=== PATIENT | male | born 1990 | race African-American/Black ===

== ENCOUNTER 2024-04-28 06:27 | Inpatient (IN) | payer OTHER, SELFPAY ==
[2024-04-28] VITALS (14 sets, daily range): BP systolic 117–160; BP diastolic 71–119; BMI 24.9; BMI 23.7
[2024-04-28 01:50] LABS: % Basophils 0.5 % (0-2); % Eosinophils 2.5 % (0-6); % Immature Granulocytes 0.2 % (0-0.5); % Neutrophils 47.8 % (42.2-75.2); Absolute Eosinophils 0.1 10^3/uL (0-0.7); Absolute Lymphocytes 2.1 10^3/uL (1.2-3.4); Absolute Monocytes 0.6 10^3/uL (0.1-0.6); Absolute Neutrophils 2.7 10^3/uL (1.4-6.5); Hematocrit 32.4 % (39.0-52.0); Hemoglobin 10.8 g/dL (13.0-18.0); Mean Corp Hgb Conc. 33.3 g/dL (33.0-37.0); Mean Corpuscular Hgb 26.7 pg (27.0-31.0); Mean Corpuscular Volume 80.2 fL (80.0-94.0); Mean Platelet Volume 10.8 fL (7.4-10.4); Nucleated Red Blood Cells % 0 % (-); Platelet Count 276 10^3/uL (130-400); Red Blood Cell Count 4.04 10^6/uL (4.70-6.10); Red Cell Dist. Width 13.7 % (11.5-14.5); White Blood Cell Count 5.6 10^3/uL (4.8-10.8)
[2024-04-28 02:02] LABS: ALT (SGPT) 17 U/L (0-50); AST (SGOT) 26 U/L (17-59); Albumin 4.5 g/dl (3.5-5.0); Alkaline Phosphatase 71 U/L (38-126); Blood Urea Nitrogen 33 mg/dl (9-20); Calcium 9.7 mg/dl (8.4-10.2); Carbon Dioxide 31 mmol/L (22-30); Chloride 102 mmol/L (98-107); Estimated Creatinine Clearance 76 ml/min; Glucose 86 mg/dl (70-99); Potassium 4.3 mmol/L (3.5-5.1); Sodium 141 mmol/L (135-145); Total Bilirubin 0.4 mg/dl (0.2-1.3); Total Protein 7.5 g/dl (6.3-8.2); eGFR > 60.00
[2024-04-28 02:03] LABS: Amphetamines Positive (Negative); Barbiturates Negative (Negative)
[2024-04-28 02:04] LABS: Benzodiazepines Positive (Negative); Buprenorphine Negative (Negative); Cocaine Positive (Negative); Marijuana Negative (Negative); Methadone Negative (Negative); Methamphetamines Positive (Negative); Opiates Positive (Negative); Phencyclidine Negative (Negative); Tricyclic Antidepressants Negative (Negative)
[2024-04-28 02:12] LABS: Fentanyl, Urine Positive (Negative)
[2024-04-28 02:32] LABS: Acetaminophen < 10 ug/ml (10-30)
[2024-04-28 02:34] LABS: Alcohol < 10 mg/dl
[2024-04-28 02:51] LABS: Salicylate < 1.0 mg/dl (2.0-20.0)
[2024-04-28] MEDS: NSS 1000 IV ×5 (03:45→23:46)
[2024-04-28] MEDS: SUBUTEX 8 MG SL ×2 (03:45→10:32)
[2024-04-28] MEDS: ZOFRAN 4 MG IV ×4 (04:11→15:44)
[2024-04-28] MEDS: SUBUTEX 4 MG SL (04:42)
--- NOTE | 2024-04-28 05:35 | ED.GENMED ---
History of Present Illness
General
Chief Complaint: Withdrawal Symptoms
Source: patient and ambulance crew
Exam Limitations: none
Time Seen by Provider: 04/28/24 03:36
Nursing documentation reviewed up to this point in time: agreed with
History of Present Illness
History of Present Illness:
This is a 33-year-old gentleman who has history of substance use disorder, IV drug abuse, fentanyl, benzodiazepines. He resides in [place]. Was transported from [place] via constable to [facility] on bench
warrant. Upon arrival was noted to be significant opioid withdrawal and admits his last use was 8 to 10 hours prior to arrival. He was not incarcerated and is currently not under arrest; instead presents via EMS to the ED for evaluation. He has
had similar withdrawal symptoms previously and has been treated sporadically with Suboxone but not recently.
He takes no medicines on a daily basis.
He admits to generalized aches, nausea and vomiting but denies abdominal pain. No diarrhea. He has not had a fever.
Past History
Past History
ED Past Medical History: Other (Polysubstance abuse. IV drug abuse.)
ED Past Surgical History: Tonsilectomy
Social History
Tobacco: Smoker
Alcohol: None
Drug: Narcotics and IVDA
Personal: Single
Living: alone
Employment: Not employed
Family History
Family History: Other (Noncontributory)
Phy Exam
Physical Exam
Physical Exam:
GENERAL: 33-year-old gentleman appears his stated age, awake, very mildly drowsy, appears in mild to moderate distress intermittently loudly retching, intermittently vomiting clear liquid. He is cooperative.
EYE: pupils equal, mildly dilated, anicteric
NECK: Supple, nontender, no meningismus, no significant adenopathy.
ENT: posterior pharynx is clear, oral mucosa is mildly dry. Moderate clear rhinorrhea.
CARDIAC: Regular rate and rhythm. no murmur.
LUNGS: Clear breath sounds bilaterally, no acute respiratory distress, no wheezes/rales/rhonchi
ABDOMEN: Soft, nondistended, without focal tenderness, no r/g, no cvat. normoactive BS.
NEUROLOGICAL: Awake, mildly drowsy, no focal neuro deficits.
SKIN: Warm and dry, normal color, skin intact. No rash. Track valero bilateral anterior neck regions, antecubital fossa.
MUSCULOSKELETAL: No C/C/E. peripheral pulses are full and equal b/l. No palpable tenderness.
PSYCH: Mildly anxious, intermittently retching. Cooperative.
Scores
COW Clinical Opiate Withdrawal Scale
Resting Pulse Rate: 81-100
Sweating-over past 30min not from room temp or activity: Beads of sweat on brow or face
Restlessness-observation during assessment: Reports difficulty sittin
Pupil Size: Pupils moderately dilated
Bone or Joint Aches: Mild diffuse discomfort
Runny Nose or Tearing-not accounted for by cold/allergies: Nose running or tearing
GI Upset-over last 30min: Multiple episodes of diarrhea or vomiting
Tremor-observation of outstretched hands: Tremor can be felt, but not observed
Yawning-observation during assessment: Yawning once or twice during assessment
Anxiety or Irritability: Patient reports increasing irritability or anxiousness
Gooseflesh Skin: Piloerrection of skin can be felt or hairs standing up on arms
Score: 21
Withdrawal Severity: Moderate Withdrawal, consider starting Suboxone
Course
Orders/Labs/Results
Orders:
Orders
04/28/24 01:13
Electrocardiogram (*1) Urgent
Reason for Study: Other
Other Reason for Exam: withdrawal
04/28/24 01:14
EKG- Treatment ONCE
04/28/24 01:35
Acetaminophen Urgent
Comment: ADDED
Alcohol Urgent
Complete Blood Count/With Diff Urgent
Comprehensive Metabolic Panel Urgent
Fentanyl, Urine Urgent
Salicylate Urgent
Comment: ADDED
Urine Drug Abuse Screen Urgent
Date Specimen was Collected: 04/28/24
Time Specimen was Collected: 01:33
04/28/24 02:15
Add On- LAB Urgent
Tests Added?: alcohol, salicylate, acetaminophen
04/28/24 03:37
0.9% Sodium Chloride 1000 ml [Nss] 1,000 ml IV BOLUS
04/28/24 03:39
Buprenorphine [Subutex] 8 mg SL NOW ONE
04/28/24 04:09
Ondansetron Injectable [Zofran] 4 mg .ROUTE .STK-MED ONE
04/28/24 04:11
Ondansetron Injectable [Zofran] 4 mg IV NOW STA
04/28/24 04:36
Buprenorphine [Subutex] 4 mg SL NOW ONE
04/28/24 04:41
Ondansetron Injectable [Zofran] 4 mg IV NOW STA
04/28/24 05:32
0.9% Sodium Chloride 1000 ml [Nss] 1,000 ml IV BOLUS
Abnormal Lab Results
04/28/24
01:35
RBC 4.04 L 10^6/uL
(4.70-6.10)
Hgb 10.8 L g/dL
(13.0-18.0)
Hct 32.4 L %
(39.0-52.0)
MCH 26.7 L pg
(27.0-31.0)
MPV 10.8 H fL
(7.4-10.4)
Monocytes % 11.0 H %
(1.7-9.3)
Carbon Dioxide 31 H mmol/L
(22-30)
BUN 33 H mg/dl
(9-20)
Creatinine 1.4 H mg/dL
(0.7-1.3)
Salicylates < 1.0 L mg/dl
(2.0-20.0)
Urine Opiates Screen Positive H
(Negative)
Urine Fentanyl Screen Positive H
(Negative)
Acetaminophen < 10 L ug/ml
(10-30)
Ur Amphetamines Screen Positive H
(Negative)
U Methamphetamines Scrn Positive H
(Negative)
U Benzodiazepines Scrn Positive H
(Negative)
Urine Cocaine Screen Positive H
(Negative)
04/28/24 01:35
04/28/24 01:35
Vital Signs
Initial and Last Documented VS:
Initial Vital Signs
Temp Pulse Resp BP Pulse Ox
98.8 F 78 18 143/100 100
04/28/24 01:01 04/28/24 01:01 04/28/24 01:01 04/28/24 01:01 04/28/24 01:01
Last Documented Vital Signs
Temp Pulse Resp BP Pulse Ox
98.8 F 77 20 117/80 97
04/28/24 01:01 04/28/24 05:07 04/28/24 05:07 04/28/24 05:07 04/28/24 05:00
MDM/Problems Addressed
Differential Diagnosis Includes:
Patient presents via EMS with active opioid withdrawal syndrome. COWS score of 21
Concern for dehydration, electrolyte abnormality, acute kidney injury. Other consideration is occult infectious process.
Will check labs, initiate IV fluids and will plan to initiate Subutex for opioid withdrawal.
Will consider addition of benzodiazepine as well.
Chronic conditions affecting care: Psychiatric illness (Substance use disorder)
Acute Exacerbation and/or Progression of Chronic Illness: Psychiatric illness (Severe opioid withdrawal syndrome/substance use disorder)
*EKG
Interpreted by ED Provider?: Yes
Interpretation: normal
Comparison EKG: no comparison EKG present
Rate: normal
Rhythm: sinus
[place]: normal axis
Interval: normal interval
QRS Pattern: normal QRS
Ischemia: no ischemia
*Rd Project Manager Interpretation
Rate: normal
Interpretation: normal
Rhythm: sinus
*Critical Care Note
Total Time (30-74mins, 75-104mins- exclusive of procedures): Not Applicable
Update Note
Update Note:
04/28/2024 0551 AM
Patient appears somewhat more comfortable but continues with recurrent retching/vomiting despite IV fluids, despite 2 doses of IV Zofran as well as 12 mg of Subutex.
Labs show mild anemia with hemoglobin of 10.8, normal white blood cell count. Normal indices.
Chemistry show elevated creatinine of 1.4 concerning for acute kidney injury/dehydration. I have no old labs to compare.
EtOH, acetaminophen, salicylate are all negative, consistent with history.
UDS positive for fentanyl, benzodiazepines, methamphetamine, cocaine.
Due to intractable vomiting, acute kidney injury will plan to continue IV fluids, continue opioid withdrawal treatment and patient will require acute hospitalization for continued care/continued observation.
We have been in contact with [facility] mortgage loan specialist. Patient unfortunately too sick to discuss/arrange for inpatient rehab at this point.
ED Attending Note
-
Portions of this chart may have been created with voice recognition software.� Occasional wrong word or��sound alike� substitutions may have occurred due to the inherent limitations of voice recognition software.
Discharge Plan
Departure
Patient Disposition: Admit
Date of Disposition: 04/28/24
Time of Disposition: 05:40
Admit to: Telemetry
Admit to doctor: Herminio
Presentation/result/management discussed w/ accepting MD/DO: Hospitalist
Condition: Fair
Discharge Problem:
Acute opioid withdrawal, Intractable nausea and vomiting, Acute kidney injury, Polysubstance dependence including opioid type drug with complication, episodic abuse
Referrals:
NONE,* [Family Provider] -
Interventions
Interventions:
*Risk Screen - Suicide Last Done: 04/28/24 01:01
*General Assessment Last Done: 04/28/24 01:01
*Neglect/Abuse Screening Last Done: 04/28/24 01:01
*ED COVID-19 Vaccine History Last Done: 04/28/24 01:01
ED- Neurological Assessment Last Done: 04/28/24 01:11
ED-Psychological Assessment Last Done: 04/28/24 01:11
Discharge Date and Time
Print Language: ARMENIAN
--- NOTE | 2024-04-28 06:16 | HPS.HSE ---
Family Physician
-
Family Physician: * NONE
Chief Complaint
-
Opiate withdrawal.
History of Present Illness
Patient is a 34 years old male with polysubstance use disorder including IV drug use, fentanyl, benzodiazepines, cocaine, methamphetamine who presents to the emergency room with severe nausea vomiting and shakes. Patient was transported from
[place] via constable to [facility] for bench warrant. At that time he noted to have significant withdrawal symptoms. He admits last time using IV fentanyl close to 24 hours prior to presentation to the emergency room.
Patient was not incarcerated. After he was let go he presents to the emergency room.
Patient denies any chronic medical conditions. He does not take any prescriptive medications.
While in emergency room patient found to be with severe withdrawal symptoms including nausea vomiting shakes.
Medical History
Past Medical History
Past Medical History: Reports None, CAD and Other (Polysubstance abuse)
Past Surgical History: Reports None
Social History
Drug: IVDA
Personal: Single
Employment: Not Employed
Family History
Family History: Not pertinent
Allergies / Home Medications
Allergies reflects when Allergies were last updated in [employer].
Home Medications with original date entered in [employer]
Allergy/Medication List:
None
Allergies
Allergy/AdvReac Type Severity Reaction Status Date / Time
No Known Allergies Allergy Unverified 04/28/24 01:03
Review of Systems
-
A 12 point ROS was completed and negative except as noted: Yes
Physical Exam
Vital Signs
Vital Signs
Temp Pulse Resp BP Pulse Ox
98.8 F 77 20 117/80 97
04/28/24 01:01 04/28/24 05:07 04/28/24 05:07 04/28/24 05:07 04/28/24 05:00
Physical Exam
General: Well Developed, Well Nourished and No Apparent Distress
HEENT: NormoCephalic, Moist mucous membranes and Atraumatic
Respiratory: Clear
Cardiac: S1/S2 and Regular Rhythm; No Murmur or Rub
GI: Soft, Non Tender, Non Distended and Normal Bowel Sounds; No Organomegaly
Rectal: Deferred by Provider
Musculoskeletal: No Clubbing, No Cyanosis and No Edema
Skin: No Rash
Neuro: Awake, Alert, Oriented and Nonfocal/grossly intact
Laboratory Results
-
04/28/24 01:35
04/28/24 01:35
Laboratory Results
Total Bilirubin 0.4 mg/dl (0.2-1.3) 04/28/24 01:35
AST 26 U/L (17-59) 04/28/24 01:35
ALT 17 U/L (0-50) 04/28/24 01:35
Alkaline Phosphatase 71 U/L (38-126) 04/28/24 01:35
Impression/Plan
-
IMPRESSION:
Multisubstance abuse with severe opiate withdrawal.
HEIDE creatinine 1.4.
Normocytic anemia hemoglobin of 10? Chronic
PLAN:
Multisubstance abuse with severe opioid withdrawal.
Patient admits last IV fentanyl administered close to 24 hours prior to ED presentation.
In ED with persistent nausea and vomiting and shakes.
Urine drug screen positive for opiates, fentanyl, amphetamine/methamphetamine, benzodiazepine, cocaine.
Start opioid withdrawal protocol with Suboxone
May require addition of benzodiazepines
Cocaine positive. ECG with no ischemia. Monitor blood pressure. May need adjustment of withdrawal protocol with addition of clonidine.
Psychiatry consultation.
marketing services rep consultation
HEIDE
Creatinine 1.40
Visibly dehydrated.
Aggressive IV hydration with isotonic solution
Follow BMP
Normocytic anemia hemoglobin of 10
Follow CBC/hemoglobin with hydration. Expect further drop.
Check iron studies
Full code
DVT prophylaxis/Lovenox.
--- NOTE | 2024-04-28 06:56 | EDRN ---
this RN was sitting at the nurses station getting report from the previous assembler 1st shift RN and the pt was seen pulling concierge receptionist off, BP cuff off, Sp02 monitor off and climbed out of bed and walked to the bathroom, this RN and Teresa RN
entered the pts room, the pt was sitting on the toilet having a bowel movement and urinating, the pt started to doze off on the toilet however the pt was easily arousable, the pt was able to clean himself up, a new gown was given to the pt and the
pt was able to ambulate back to the stretcher, VS WNL, the pt was shivering so this RN provided the pt with two warm blankets, the pt is resting in stretcher in the lowest position, side rails up x2, call schmid within reach, HOB elevated, will
continue to monitor the pt closely
--- NOTE | 2024-04-28 07:00 | EDRN ---
it was reported to this RN that the pts belongings are with security
--- NOTE | 2024-04-28 07:15 | EDRN ---
this RN entered the pts room to recheck the pt and the pt is sleeping in stretcher in the lowest position, side rails up x2, call schmid within reach, HOB elevated, no s/s of distress, NSR in the 80's, RA Sp02 99%, no s/s of distress, this RN will
tube up report to the receiving unit, will continue to monitor the pt closely
[2024-04-28] MEDS: TYLENOL 1000 MG PO ×3 (08:28→23:45)
--- NOTE | 2024-04-28 10:38 | W.PN.HOSP.TC ---
Today's Communication/Plan
-
COWS/MSAS
PT/OT
await labs
Assessment / Plan
Assessment / Plan
pt is a 33 year old male
Multisubstance abuse with severe opioid withdrawal--cont COWS and MSAS protocol--Patient admitted to ED that last IV fentanyl administered close to 24 hours prior to ED presentation--Urine drug screen positive for opiates, fentanyl,
amphetamine/methamphetamine, benzodiazepine, cocaine--Start opioid withdrawal protocol with Suboxone--Cocaine positive. ECG with no ischemia. Monitor blood pressure. May need adjustment of withdrawal protocol with addition of clonidine--Await
Psychiatry consultation.
HEIDE--likely due to dehydration, poor oral intacke and drugs--Creatinine 1.40--Aggressive IV hydration with isotonic solution--await labs
Normocytic anemia hemoglobin of 10--Follow CBC/hemoglobin with hydration. Expect further drop--Check iron studies
Code status --Full code
DVT prophylaxis/Lovenox.
Anticipated Discharge: 24 - 48 hours
Subjective/Interval History
-
Date of Service: April 28, 2024
pt with n/v and goosebumps--not terribly interactive with me
Objective Data
-
Labs:
Laboratory Results
04/28/24 04/28/24
01:35 12:00
WBC 5.6 Pending
Hgb 10.8 L Pending
Hct 32.4 L Pending
Plt Count 276 Pending
Sodium 141 Pending
Potassium 4.3 Pending
Chloride 102 Pending
Carbon Dioxide 31 H Pending
BUN 33 H Pending
Creatinine 1.4 H Pending
Glucose 86 Pending
Calcium 9.7 Pending
Total Bilirubin 0.4 Pending
AST 26 Pending
ALT 17 Pending
Alkaline Phosphatase 71 Pending
Vital Signs:
max temp for 24 hours
04/28/24
01:01
Temp 98.8 F
Vital Signs
Temp Pulse Resp BP Pulse Ox
99.5 F 81 19 153/77 96
04/28/24 08:00 04/28/24 08:00 04/28/24 08:00 04/28/24 08:00 04/28/24 08:00
Review of Systems
-
Unable to obtain full review of systems at this time due to: Other (somnolent)
Physical Exam
-
General: Well Developed, Well Nourished and No Apparent Distress
HEENT: Normocephalic and Atraumatic
Respiratory: Clear to Auscultation; Negative Wheezes or Rhonchi
Cardiac: Regular Rhythm and S1/S2; Negative Murmur
GI: Soft and Nontender; Negative Normal Bowel Sounds
Musculoskeletal: No Clubbing, No Cyanosis, No Edema and Other (twitchy with goosebumps)
Neuro: Negative Awake or Alert
Psych: Calm
--- NOTE | 2024-04-28 11:41 | CON.MD ---
Consultation - Medical
-
patient seen chart reviewed. discussed with nursing and dr bonilla. the patient is a very poor historian unable to attend as he is in the throes of opiate withdrawal covered w rubia puentes, n/v. he did provide a little bit of information but more
will need to be gathered. he has already received 20 mg buprenorphine . he was brought here by police as there was a bench warrant for his arrest but he was let go. it was noted he was not doing well hence brought to er and admitted given wd.
tox screen + for opiates fentanyl amphets/meth, bzp and cocaine. he denies hx of depression and anxiety. he has never been hospitalized psychiatrically. he has been in rehab. i could not understand a lot of what he was saying as his speech was
rather garbled. he is originally from [place] and moved here to [facility] [place]. [place]. he admits to iv drug abuse. bp 157/77 cr 1.4 bun 33 anemia hgb 10 ecg nl
mse patient is oriented x3 i would not say he is alert but he did answer some of the questions but often i could not understand him. he denies that he is depressed . affect is blunted. he denies that he is suicidal. insight judgment lacking
dx opiate use disorder severe other drug use including stimulants, benzos likely r.o underlying psych when able to cooperate
plan discussed at length with pharmacist ms branch. the patient is in very significant distress. he may be in precipitated withdrawal given that he received buprenorphine very soon after arrival so far 20 mg today. consider whether to use
small amounts of dilaudid 1 mg for cows greater than 12 as well as clonidine patch and consider liberalizing ativan . ms branch also suggested considering tizanidine to help w possible xylazine wd. he does not have any sores which might indicate
xylazine. will discuss w dr bonilla. psych will follow
[2024-04-28 11:44] LABS: Hematocrit 27.6 % (39.0-52.0); Hemoglobin 9.3 g/dL (13.0-18.0); Mean Corp Hgb Conc. 33.7 g/dL (33.0-37.0); Mean Corpuscular Hgb 26.9 pg (27.0-31.0); Mean Corpuscular Volume 79.8 fL (80.0-94.0); Mean Platelet Volume 10.6 fL (7.4-10.4); Platelet Count 252 10^3/uL (130-400); Red Blood Cell Count 3.46 10^6/uL (4.70-6.10); Red Cell Dist. Width 13.7 % (11.5-14.5); White Blood Cell Count 5.6 10^3/uL (4.8-10.8)
[2024-04-28] MEDS: THIAMINE INJECTION 200 MG IV ×2 (11:44→20:41)
[2024-04-28 12:07] LABS: ALT (SGPT) 13 U/L (0-50); AST (SGOT) 21 U/L (17-59); Albumin 3.4 g/dl (3.5-5.0); Alcohol None Detected; Alkaline Phosphatase 65 U/L (38-126); Blood Urea Nitrogen 22 mg/dl (9-20); Calcium 7.6 mg/dl (8.4-10.2); Carbon Dioxide 26 mmol/L (22-30); Chloride 112 mmol/L (98-107); Estimated Creatinine Clearance 106 ml/min; GGTP 43 U/L (15-73); Glucose 84 mg/dl (70-99); Magnesium 1.6 mg/dl (1.6-2.3); Phosphorus 1.4 mg/dl (2.5-4.5); Potassium 2.9 mmol/L (3.5-5.1); Sodium 144 mmol/L (135-145); Total Bilirubin 0.5 mg/dl (0.2-1.3); eGFR > 60.00
[2024-04-28] MEDS: CATAPRES-TTS-2 0.2 MG TRANSDERM (12:14)
[2024-04-28 12:23] LABS: INR 1.39; PT 16.8 Sec (11.4-14.6)
[2024-04-28 12:24] LABS: APTT 31.6 Sec (23.4-35.0)
[2024-04-28] MEDS: DILAUDID 1 MG IV ×2 (12:27→15:44)
[2024-04-28 12:39] LABS: B-Hydroxybutyrate 1.15 mmol/L (0.02-0.27)
--- NOTE | 2024-04-28 12:44 | CM ---
Unable to complete initial assessment
Chart reviewed: multi substance abuse w/ severe opioid withdrawal; admitted via ED; last IV fentanyl administered close to 24 hours prior to ED presentation
Positive urine drug screen
From [place]; lives in [place]
Pharmacy: [facility] [place]
Following CBC with hydration
Anticipate Discharge 24-48 hours
CM Consult completed: notified [facility]; spoke with counselor industrial economist; Sukhi will see him today or tomorrow
[2024-04-28] MEDS: LOVENOX 40 MG SC (17:13)
[2024-04-28] MEDS: ZANAFLEX 2 MG PO ×2 (17:20→23:46)
--- NOTE | 2024-04-28 19:22 | PTCARENOTE ---
patient pulled out PIV and removed telemetry leads, in the bathroom with nausea/vomit. Waiting on patient to get back to be for new IV.
[2024-04-28] MEDS: ATIVAN 1 MG PO (19:27)
[2024-04-28] MEDS: MAGNESIUM SULFATE 50 IV (20:42)
[2024-04-28] MEDS: KCL 270 MEQ IV (20:42)
[2024-04-29 03:41] VITALS: BP 133/76
[2024-04-29 06:57] LABS: % Basophils 0.2 % (0-2); % Immature Granulocytes 0.3 % (0-0.5); % Lymphocytes 19.5 % (20.5-51.1); % Monocytes 9.6 % (1.7-9.3); % Neutrophils 70.4 % (42.2-75.2); Absolute Lymphocytes 1.3 10^3/uL (1.2-3.4); Absolute Monocytes 0.6 10^3/uL (0.1-0.6); Absolute Neutrophils 4.6 10^3/uL (1.4-6.5); Hematocrit 30.2 % (39.0-52.0); Hemoglobin 9.9 g/dL (13.0-18.0); Mean Corp Hgb Conc. 32.8 g/dL (33.0-37.0); Mean Corpuscular Hgb 26.4 pg (27.0-31.0); Mean Corpuscular Volume 80.5 fL (80.0-94.0); Mean Platelet Volume 10.8 fL (7.4-10.4); Nucleated Red Blood Cells % 0 % (-); Platelet Count 280 10^3/uL (130-400); Red Blood Cell Count 3.75 10^6/uL (4.70-6.10); Red Cell Dist. Width 13.9 % (11.5-14.5); White Blood Cell Count 6.6 10^3/uL (4.8-10.8)
[2024-04-29 07:00] VITALS: BP 129/78
[2024-04-29 08:11] LABS: ALT (SGPT) 18 U/L (0-50); AST (SGOT) 28 U/L (17-59); Albumin 4.2 g/dl (3.5-5.0); Alkaline Phosphatase 73 U/L (38-126); Blood Urea Nitrogen 31 mg/dl (9-20); Calcium 9.5 mg/dl (8.4-10.2); Carbon Dioxide 25 mmol/L (22-30); Chloride 108 mmol/L (98-107); Direct Bilirubin 0.2 mg/dl (0.0-0.4); Estimated Creatinine Clearance 82 ml/min; Glucose 101 mg/dl (70-99); Magnesium 2.3 mg/dl (1.6-2.3); Potassium 3.8 mmol/L (3.5-5.1); Sodium 144 mmol/L (135-145); Total Bilirubin 0.6 mg/dl (0.2-1.3); Total Protein 7.1 g/dl (6.3-8.2); eGFR > 60.00
[2024-04-29] MEDS: FOLVITE 1 MG PO (08:12)
[2024-04-29] MEDS: THIAMINE INJECTION 200 MG IV ×2 (08:12→19:17)
[2024-04-29] MEDS: TYLENOL 1000 MG PO ×3 (08:13→23:01)
[2024-04-29 10:57] VITALS: BP 127/89
[2024-04-29] MEDS: SUBUTEX 0.5 MG SL (13:21)
--- NOTE | 2024-04-29 13:34 | CM ---
Patient seen at bedside. patient also seen by Sukhi from [facility]. Patient states he is ready to go to seek treatment as inpatient however, per Sukhi patient nurse told him that police were to pick him up after discharge. VM left for patient nurse to
review options. CM will continue to follow for discharge planning needs.
Plan; home with information re; substance abuse follow up
--- NOTE | 2024-04-29 14:10 | W.PN.UPDATE ---
Update Note
Progress Note Update
Pt seen, reviewed with nursing staff. Pt lying in bed, sleepy, groaning and giving very limited responses. Pt affirms he was prescribed Suboxone 16 mg per day prior to admission, although he was using Fentanyl, benzo's, cocaine, methamphetamine.
PDPM shows Rx for Suboxone 16 mg per day, resumed 03/05/24 and filled consistently since then. Pt noted to c/o worse withdrawal initially on Subutex protocol, may have had precipitated w/d. Pt also on MSAS protocol, only received one dose of Ativan
1 mg yesterday. Pt c/o feeling withdrawal, says yes to aches, nausea, does not display overt objective signs, is socially withdrawn, not making eye contact.
Imp: Opioid Use d/o, severe
Polysubstance use- benzo, cocaine, methamphetamine
Rec: Stop Dilaudid; slowly increase Subutex. Pt answered yes to planning to return to Suboxone maintenance treatment when discharged
Will follow, and assess mental status further as able
[2024-04-29 15:00] VITALS: BP 100/72
[2024-04-29 15:26] VITALS: BMI 23.7
--- NOTE | 2024-04-29 15:32 | PN.CDI ---
CDI
- -
CDI:
Physician Documentation Request
Admit Date: 04/28/24 06:27
Dear Doctor Zev,
Please review the following and provide your response in the progress notes.
Clinical Indicators:
Laboratory Tests
04/28/24 04/28/24 04/29/24
01:35 11:16 06:07
Potassium 4.3 2.9 L D 3.8 D
Medications
Potassium Chloride 40 meq/ (Dextrose) 270 mls @ 67.5 mls/hr IV NOW STA
Stop: 04/28/24 22:24
Last Admin: 04/28/24 20:42 Dose: 270 mls
Based on the above, please clarify in the progress notes, the appropriate diagnosis, if significant, that supports the above abnormalities and additional evaluation, monitoring and/or treatment rendered:
Hypokalemia
Abnormal lab value, clinically insignificant
Other(please specify)
Use of terms such as suspected, likely, concern for, or probable (associated with a specific diagnosis that is being evaluated, monitored, or treated as if it exists) are acceptable and can be coded in the inpatient setting, when documented at the
time of discharge.
Thank you,
Michell Raza RN BSN CCDS
CDI Specialist
please contact via tiger text
Please use your independent medical judgment in providing your response.
[2024-04-29] MEDS: SUBUTEX 2 MG SL ×2 (16:10→23:02)
--- NOTE | 2024-04-29 16:55 | W.PN.HOSP.TC ---
Addendum entered and electronically signed by Michell Brothers MD 04/29/24 19:25:
I saw and evaluated the patient independently. I reviewed the resident�s note and agree with findings and plan as documented by Dr. Srivastava.
GENERAL: well developed, well nourished, male in no apparent distress
HEENT: NC/AT
HEART: regular rate and rhythm, +S1, +S2--less tachycardic
LUNGS : clear to auscultation bilaterally
ABDOM: soft, nontender, nondistended, + bowel sounds
EXT: no cyanosis, clubbing, or edema--less goosebumps
NEUROLOGIC: awake--responds
Multisubstance abuse with severe opioid withdrawal--cont COWS and MSAS protocol--Patient admitted to ED that last IV fentanyl administered close to 24 hours prior to ED presentation--Urine drug screen positive for opiates, fentanyl,
amphetamine/methamphetamine, benzodiazepine, cocaine--cont opioid withdrawal protocol with Suboxone--May need adjustment of withdrawal protocol with addition of clonidine--Apprec Psychiatry--stopping IV dilaudid started by psych and stopping
microdosing of subutex as well
HEIDE--likely due to dehydration, poor oral intake and drugs--Creatinine 1.3--
Normocytic anemia hemoglobin of 10, likely of chronic disease--Follow CBC/hemoglobin with hydration
hypophosphatemia--noted--will repeat
Code status --Full code
DVT prophylaxis/Lovenox.
Original Note:
Today's Communication/Plan
-
IV fluids, MSAS, COWS
Assessment / Plan
Assessment / Plan
pt is a 33 year old male:
Multisubstance abuse with severe opioid withdrawal---Patient admitted to ED that last IV fentanyl administered close to 24 hours prior to ED presentation--Urine drug screen positive for opiates, fentanyl, amphetamine/methamphetamine, benzodiazepine,
cocaine---. ECG with no ischemia. Monitor blood pressure. May need adjustment of withdrawal protocol with addition of clonidine---
- Continue Opioid withdrawal protocol with microdosing of Suboxone + supportive Dilaudid. COWS this AM = 10
- Positive beta-hydroxybutyrate 1.15, alcohol <10 on presentation. Continue MSAS protocol
- Appreciate Psych Input
- [facility] consult via CM
HEIDE--likely due to dehydration, poor oral intake and drugs--Creatinine 1.40 on arrival
-Aggressive IV hydration with isotonic solution--Cr 1.3 today
-Follow BMP
Normocytic anemia hemoglobin of 10.8 at admission
-Reduced with hydration --9.9
-Follow CBC/hemoglobin
-Will check iron studies. transfuse as needed
Code status --Full code
DVT prophylaxis/Lovenox.
Anticipated Discharge: Within 24 hours
Subjective/Interval History
-
Date of Service: April 29, 2024
Objective Data
-
Labs:
Laboratory Results
04/29/24
06:07
WBC 6.6
Hgb 9.9 L
Hct 30.2 L
Plt Count 280
Sodium 144
Potassium 3.8 D
Chloride 108 H
Carbon Dioxide 25
BUN 31 H
Creatinine 1.3
Glucose 101 H
Calcium 9.5 D
Total Bilirubin 0.6
AST 28
ALT 18
Alkaline Phosphatase 73
Vital Signs:
Vital Signs
Temp Pulse Resp BP Pulse Ox
99.7 F 65 17 100/72 97
04/29/24 15:00 04/29/24 15:00 04/29/24 15:00 04/29/24 15:00 04/29/24 15:00
I&O
04/28/24 04/29/24 04/30/24
06:59 06:59 06:59
Intake Total 2119
Balance 2119
Review of Systems
-
History Source: Patient
Constitutional: Reports Chills; Denies Fever
Respiratory: Denies Trouble Breathing
Cardiac: Denies Chest Pain
Abdomen/GI: Reports No Symptoms; Denies Abdominal Pain, Nausea, Vomiting, Diarrhea or Constipated
Genitourinary: Reports No Symptoms; Denies Dysuria
Musculoskeletal: Reports Arthralgias and Myalgias
Physical Exam
-
General: Well Developed and Other (appears uncomfortable)
HEENT: Normocephalic and Moist Mucous Membranes
Respiratory: Clear to Auscultation and Non Labored Respirations; Negative Wheezes, Rales, Rhonchi or Crackles
Cardiac: Regular Rhythm and S1/S2; Negative Irregular Rhythm, Murmur or Rub
Musculoskeletal: No Edema
Skin: Warm, Dry and Other (piloerection); Negative Ulcers or Lesions
Neuro: Tremors and Other (Somnolent, rousable, answers questions)
Psych: Calm
[2024-04-29] MEDS: LOVENOX 40 MG SC (17:36)
[2024-04-29 19:00] VITALS: BP 136/88
[2024-04-29] MEDS: ZANAFLEX 2 MG PO (19:29)
[2024-04-29 23:30] VITALS: BP 106/68
[2024-04-30 02:39] VITALS: BP 130/80
[2024-04-30 07:35] VITALS: BP 110/63
--- NOTE | 2024-04-30 07:59 | W.PN.HOSP.TC ---
Addendum entered and electronically signed by Michell Brothers MD 04/30/24 13:59:
I saw and evaluated the patient independently. I reviewed the resident�s note and agree with findings and plan as documented by Dr. Srivastava.
GENERAL: well developed, well nourished, male in no apparent distress
HEENT: NC/AT
HEART: regular rate and rhythm, +S1, +S2
LUNGS : clear to auscultation bilaterally
ABDOM: soft, nontender, nondistended, + bowel sounds
EXT: no cyanosis, clubbing, or edema
NEUROLOGIC: awake--responds
Multisubstance abuse with severe opioid withdrawal--cont COWS and MSAS protocol--Patient admitted to ED that last IV fentanyl administered close to 24 hours prior to ED presentation--Urine drug screen positive for opiates, fentanyl,
amphetamine/methamphetamine, benzodiazepine, cocaine--cont opioid withdrawal protocol with Suboxone--May need adjustment of withdrawal protocol with addition of clonidine--Apprec Psychiatry--stopping IV dilaudid started by psych and stopping
microdosing of subutex as well
HEIDE--likely due to dehydration, poor oral intake and drugs--Creatinine 1.3--no labs this AM
Normocytic anemia hemoglobin of 10, likely of chronic disease--Follow CBC/hemoglobin with hydration
hypophosphatemia--noted--will repeat
Code status --Full code
DVT prophylaxis/Lovenox.
anticipate d/c in AM
Original Note:
Today's Communication/Plan
-
Likely discharge tomorrow
Assessment / Plan
Assessment / Plan
pt is a 33 year old male:
Multisubstance abuse with severe opioid withdrawal---Patient admitted to ED that last IV fentanyl administered close to 24 hours prior to ED presentation--Urine drug screen positive for opiates, fentanyl, amphetamine/methamphetamine, benzodiazepine,
cocaine---. ECG with no ischemia. Monitor blood pressure. May need adjustment of withdrawal protocol with addition of clonidine---
- Continue Opioid withdrawal protocol with microdosing of Suboxone + supportive Dilaudid. COWS this AM = 8
- Positive beta-hydroxybutyrate 1.15, alcohol <10 on presentation. Continue MSAS protocol
- Appreciate Psych Input. Trazodone 50 mg started for insomnia
- [facility] consult via CM
Acute kidney injury
Likely due to dehydration, poor oral intake and drugs--Creatinine 1.40 on arrival
-Tolerating p.o. Improved appetite encourage oral hydration
-Follow BMP
Hypokalemia:
2.9.
-Repleted
Normocytic anemia hemoglobin of 10.8 at admission
-Reduced with hydration --9.9
- Source is unclear. Follow CBC/hemoglobin
-Will check iron studies. transfuse as needed
Hypophosphatemia:
- Repeat
Code status --Full code
DVT prophylaxis/Lovenox.
Anticipated Discharge: Within 24 hours
Subjective/Interval History
-
Date of Service: April 30, 2024
Patient feels markedly better today. Improved appetite
Objective Data
-
Labs:
Laboratory Results
04/30/24
06:00
WBC Pending
Hgb Pending
Hct Pending
Plt Count Pending
Sodium Pending
Potassium Pending
Chloride Pending
Carbon Dioxide Pending
BUN Pending
Creatinine Pending
Glucose Pending
Calcium Pending
Total Bilirubin Pending
AST Pending
ALT Pending
Alkaline Phosphatase Pending
Vital Signs:
Vital Signs
Temp Pulse Resp BP Pulse Ox
98 F 59 16 110/63 100
04/30/24 07:35 04/30/24 07:35 04/30/24 07:35 04/30/24 07:35 04/30/24 07:35
I&O
04/29/24 04/30/24 05/01/24
06:59 06:59 06:59
Intake Total 2119 1060 / 1060
Output Total 2349
Balance 2119 -1290 / -1290
Review of Systems
-
History Source: Patient
Constitutional: Denies Fever or Chills
Respiratory: Reports No Symptoms; Denies Cough or Trouble Breathing
Cardiac: Reports Diaphoresis; Denies Chest Pain or Palpitations
Abdomen/GI: Reports No Symptoms; Denies Abdominal Pain, Nausea, Vomiting, Diarrhea or Constipated
Musculoskeletal: Reports Myalgias
Neuro: Denies Dizzy or Headache
Psych: Reports Anxious
Physical Exam
-
General: Well Developed, Well Nourished, No Apparent Distress and Comfortable
HEENT: Normocephalic, Atraumatic, Moist Mucous Membranes and Anicteric
Respiratory: Clear to Auscultation and Non Labored Respirations; Negative Wheezes, Rales, Rhonchi or Crackles
Cardiac: Regular Rhythm and S1/S2; Negative Murmur, Rub or Calf Tenderness
GI: Soft
Musculoskeletal: No Clubbing, No Cyanosis and No Edema
Skin: Warm, Dry and Other (Piloerection); Negative Rash, Ulcers or Lesions
Neuro: Awake, Alert, Oriented and Other (No tremor)
Psych: Calm
[2024-04-30] MEDS: TYLENOL 1000 MG PO ×3 (09:20→23:03)
[2024-04-30] MEDS: SUBUTEX 2 MG SL ×3 (09:20→22:54)
[2024-04-30] MEDS: FOLVITE 1 MG PO (09:21)
[2024-04-30] MEDS: NSS IV ×3 (09:21)
[2024-04-30] MEDS: THIAMINE INJECTION 200 MG IV ×2 (09:21→19:35)
--- NOTE | 2024-04-30 11:02 | W.PN.UPDATE ---
Update Note
Progress Note Update
Patient seen, chart reviewed, discussed with RN and staff. Mr. Cortez appears to be doing a but better today. Current denies nay withdrawal symptoms. He tells me his appetite is returning and he is trying to take in more fluids. He does admit he is
not sleeping well and has not slept well in quite some time. He has had trazodone by his report in the past which was helpful Will initiate this HS. He is interested in continue substance abuse treatment once medically stable but is unsure if he
will be incarcerated once medically stable as there was a bench warrant for a probation violation here is [facility]. [facility] and CM to follow.
Impression/Recommendation: Opioid use disorder, severe; Polysubstance use - benzo, cocaine, methamphetamine - Continue Subutex currently at 2mg TID, MSAS and COWS protocol in place. Add trazodone at 50mg for sleep.
[2024-04-30 13:29] LABS: Iron 50 ug/dl (49-181); Percent Saturation 16 % (20-50); Total Iron Binding Capacity 299 ug/dl (261-462)
[2024-04-30 14:29] LABS: Ferritin 83.3 ng/ml (17.9-464.0)
--- NOTE | 2024-04-30 15:15 | CM ---
Addendum entered by Bryanna Krishna 04/30/24 15:29:
per police [place] patient is to be picked up by probation for a [place] probation violation. CM will call in am when patient is discharged.
Original Note:
Patient seen at bedside. Patient stated that he was told to call police when he was discharged. CM spoke with police dispatch at [phone], anticipate return call with futher instructions. Patient for possible discharge tomorrow and patient
anticipates that he will need ride to train station. CM will continue to follow for discharge planning needs.'
Plan; home when medically stable
[2024-04-30 15:23] VITALS: BP 129/80
[2024-04-30] MEDS: ZANAFLEX 2 MG PO (17:19)
[2024-04-30] MEDS: LOVENOX 40 MG SC (17:27)
[2024-04-30 19:35] VITALS: BP 130/75
[2024-04-30 20:43] LABS: Phosphorus 2.6 mg/dl (2.5-4.5)
[2024-04-30] MEDS: DESYREL 50 MG PO (21:03)
[2024-04-30 22:53] VITALS: BP 129/83
--- NOTE | 2024-05-01 03:48 | DOWNTIME ---
There was a [employer] Downtime on 05/01/2024 from 0100 to 05/01/2024 at 0255. Downtime documentation of patient's care, including medication administrations, has been reconciled in the electronic record per guidelines. Refer to the
patient's paper chart under the miscellaneous tab to see printed paper medication records and downtime forms.
[2024-05-01 03:54] VITALS: BP 138/75
--- NOTE | 2024-05-01 05:09 | PTCARENOTE ---
Patient's HR in 40s when sleeping. No distress. stable vitals.
[2024-05-01 08:03] VITALS: BP 128/74
--- NOTE | 2024-05-01 08:08 | W.PN.HOSP.TC ---
Addendum entered and electronically signed by Michell Brothers MD 05/01/24 17:41:
I saw and evaluated the patient independently. I reviewed the resident�s note and agree with findings and plan as documented by Dr. Srivastava.
GENERAL: well developed, well nourished, male in no apparent distress
HEENT: NC/AT
HEART: regular rate and rhythm, +S1, +S2
LUNGS : clear to auscultation bilaterally
ABDOM: soft, nontender, nondistended, + bowel sounds
EXT: no cyanosis, clubbing, or edema
NEUROLOGIC: awake/grossly intact
Multisubstance abuse with severe opioid withdrawal--s/p COWS and MSAS protocol--Patient admitted to ED that last IV fentanyl administered close to 24 hours prior to ED presentation--Urine drug screen positive for opiates, fentanyl,
amphetamine/methamphetamine, benzodiazepine, cocaine--cont Suboxone--Apprec Psychiatry
HEIDE--likely due to dehydration, poor oral intake and drugs--Creatinine 1.2 down from 1.4 (did get to 1.0 during this admission)
Normocytic anemia-- hemoglobin 11.1 at discharge, likely of chronic disease
hypophosphatemia--noted--improved
Code status --Full code
DVT prophylaxis/Lovenox.
D/C
Original Note:
Today's Communication/Plan
-
Discharge planning
Assessment / Plan
Assessment / Plan
pt is a 33 year old male:
Multisubstance abuse with severe opioid withdrawal---Patient admitted to ED that last IV fentanyl administered close to 24 hours prior to ED presentation--Urine drug screen positive for opiates, fentanyl, amphetamine/methamphetamine, benzodiazepine,
cocaine---. ECG with no ischemia.
- Continue Opioid withdrawal protocol with microdosing of Suboxone + supportive Dilaudid. COWS this AM = 1
- Positive beta-hydroxybutyrate 1.15, alcohol <10 on presentation. Continue MSAS protocol
- Appreciate Psych Input. Trazodone 50 mg for insomnia
- [facility] consult via CM
- Okay to discharge today
Acute kidney injury
Likely due to dehydration, poor oral intake and drugs--Creatinine 1.40 on arrival. No known baseline. Resolved. 1.2 today
-Tolerating p.o. Improved appetite and oral hydration
-Follow BMP
Hypokalemia:
2.9.
-Repleted, resolved
Normocytic anemia hemoglobin of 10.8 at admission
- 11.1 today
- Follow CBC/hemoglobin
Hypophosphatemia:
- Resolved. 2.6
Code status --Full code
DVT prophylaxis/Lovenox.
Anticipated Discharge: Today
Subjective/Interval History
-
Date of Service: May 01, 2024
Pt feels subjectively better. Reports good sleep with trazodone
Objective Data
-
Labs:
Laboratory Results
05/01/24 05/01/24
07:46 08:04
WBC Pending
Hgb Pending
Hct Pending
Plt Count Pending
Sodium Cancelled Pending
Potassium Cancelled Pending
Chloride Cancelled Pending
Carbon Dioxide Cancelled Pending
BUN Cancelled Pending
Creatinine Cancelled Pending
Glucose Cancelled Pending
Calcium Cancelled Pending
Total Bilirubin Cancelled Pending
AST Cancelled Pending
ALT Cancelled Pending
Alkaline Phosphatase Cancelled Pending
Vital Signs:
Vital Signs
Temp Pulse Resp BP Pulse Ox
98 F 52 16 128/74 100
05/01/24 08:03 05/01/24 08:03 05/01/24 08:03 05/01/24 08:03 05/01/24 08:03
I&O
04/30/24 05/01/24 05/02/24
06:59 06:59 06:59
Intake Total 1060 / 1060 3350 / 3350
Output Total 2350 / 2350 2650 / 2650
Balance -1290 / -1290 700 / 700
Review of Systems
-
History Source: Patient
Constitutional: Denies Fever, Night Sweats or Chills
EENT: Denies Tearing or Runny Nose
Respiratory: Denies Cough or Trouble Breathing
Cardiac: Denies Chest Pain, Palpitations or Syncope
Abdomen/GI: Denies Abdominal Pain, Nausea, Vomiting, Diarrhea or Constipated
Genitourinary: Denies Dysuria or Difficulty Voiding
Neuro: Denies Dizzy or Headache
Psych: Reports Other (calm)
Physical Exam
-
General: Well Developed, Well Nourished, No Apparent Distress and Comfortable
HEENT: Normocephalic, Atraumatic, Moist Mucous Membranes and Anicteric
Respiratory: Clear to Auscultation and Non Labored Respirations; Negative Wheezes, Rales or Rhonchi
Cardiac: Regular Rhythm and S1/S2; Negative Murmur or Rub
GI: Soft, Nontender, Nondistended and Normal Bowel Sounds
Musculoskeletal: No Clubbing, No Cyanosis and No Edema
Skin: Warm, Dry and Other (no piloerection); Negative Rash, Ulcers or Lesions
Neuro: Awake, Alert and Oriented; Negative Tremors
Psych: Calm
[2024-05-01 08:34] LABS: Hematocrit 33.4 % (39.0-52.0); Hemoglobin 11.1 g/dL (13.0-18.0); Mean Corp Hgb Conc. 33.2 g/dL (33.0-37.0); Mean Corpuscular Hgb 26.7 pg (27.0-31.0); Mean Corpuscular Volume 80.3 fL (80.0-94.0); Red Blood Cell Count 4.16 10^6/uL (4.70-6.10); Red Cell Dist. Width 13.5 % (11.5-14.5)
[2024-05-01] MEDS: TYLENOL 1000 MG PO (08:57)
[2024-05-01] MEDS: FOLVITE 1 MG PO (08:58)
[2024-05-01] MEDS: VITAMIN B1 100 MG PO (08:58)
[2024-05-01] MEDS: SUBUTEX 2 MG SL (08:58)
[2024-05-01 10:20] LABS: ALT (SGPT) 17 U/L (0-50); AST (SGOT) 24 U/L (17-59); Alkaline Phosphatase 53 U/L (38-126); Blood Urea Nitrogen 18 mg/dl (9-20); Calcium 9.5 mg/dl (8.4-10.2); Carbon Dioxide 25 mmol/L (22-30); Chloride 106 mmol/L (98-107); Estimated Creatinine Clearance 88 ml/min; Glucose 124 mg/dl (70-99); Magnesium 1.9 mg/dl (1.6-2.3); Potassium 4.4 mmol/L (3.5-5.1); Sodium 140 mmol/L (135-145); Total Bilirubin 0.4 mg/dl (0.2-1.3); Total Protein 6.8 g/dl (6.3-8.2); eGFR > 60.00
[2024-05-01 11:26] VITALS: BP 134/75
--- NOTE | 2024-05-01 12:27 | CM ---
Patient for discharge today. Patient aware that police to be contacted at discharge. Patient given information about [facility] services. Patient will need scrubs for discharge due to lack of clothing. Nursing updated. CM called to [phone] and
[place] to call back regarding disposition. CM will continue to follow for discharge planning needs.
Plan; pending police disposition
--- NOTE | 2024-05-01 18:12 | W.DCSUMMARY ---
Addendum entered and electronically signed by Michell Brothers MD 05/01/24 18:46:
Read, reviewed, and agree. See same day progress note for additional details. Time spent coordinating care, DC planning, review of DC plan of care with resident, transition of care, review of records in EMR, med rec, consults, notes, d/w
consultants, nursing, family, and CM = 18 mins
Original Note:
Discharge Summary
Discharge Data
Date of Admission: 04/28/24
Date of Discharge: 05/01/24
-
Pending Results: No
Hospital Course
Discharge Physician: Micaela Srivastava MD; Michell Brothers MD
Primary discharge diagnosis: Multisubstance use disorder with severe opioid withdrawal, acute kidney injury, hypokalemia, normocytic anemia
Chronic conditions prior to admission: Substance use disorder
Hospital Course: 34-year-old male with history of substance use disorder including IV drug use, presented to the ED on 04/28 with severe nausea and vomiting and shakes. He was sent to the ED via EMS from [facility] where he
presented for a bench warrant and was then noted to have significant withdrawal symptoms. At the time he presented to the emergency room, his last use was 8 to 10 hours prior. Urine toxicology screen was positive for opiates, fentanyl,
amphetamines, methamphetamines, benzodiazepines and cocaine. Vitals where stable on presentation, but patient was noted to have severe nausea, vomiting and shakes.
He was noted to have an acute kidney injury with creatinine 1.4.
Hemoglobin with reduced at 10.8. Beta hydroxybutyrate elevated 1.15.
COWS score on presentation was 21. Suboxone was administered in the ED. Opioid withdrawal protocol was initiated with microdosing Suboxone as well as Dilaudid to temper withdrawal symptoms. MSAS protocol was also initiated given beta
hydroxybutyrate elevation, history of multisubstance use disorder, and nonzero blood alcohol level. IV fluids were administered.
He was also seen by the psychiatrist and trazodone was added for sleep disturbance. Patient subsequently noted improved sleep. There was 1 episode of fever to 100.6 with no recurrence. Steady significant improvement was noted and withdrawal
symptoms were adequately controlled. IV fluid hydration was discontinued when patient was able to achieve adequate food and water intake with markedly improved appetite. COWS score at discharge was 1 (minimal residual aches). Patient verbalized
he was ready to be discharged and was scheduled to be picked up by law enforcement. Case management was involved in arranging outpatient community resources via [facility] and patient was receptive to this information.
He was discharged with trazodone 50 mg at night for sleep, and a 7-day supply of buprenorphine 2 mg sublingual 3 times daily. He was strongly encouraged to follow-up with
Unfortunately, after discharge preparations were concluded, patient left before allowing for law enforcement arrival.
Consults:
Psychiatry
Discharge Plan
-
Patient Disposition: [facility]
Discharge Diagnosis/Procedures: Multisubstance use disorder with severe opioid withdrawal, Acute kidney injury, normocytic anemia, hypophosphatemia
Condition: Good
Diet: No restrictions
Activity: No restrictions
Driving Restrictions: As prior to admission
Bathing Restrictions: None
Referrals:
NONE,* [Family Provider] - in less than 1 week
Additional Discharge Medication Instructions: Highly recommend that you follow up with [facility] for helpful community resources
Prescriptions:
New
trazodone 50 mg Tablet
50 mg PO HS 30 Days Qty: 30 0RF
buprenorphine HCl 2 mg Tablet, Sublingual
2 mg sublingual TID 7 Days Qty: 21 0RF
Discharge Orders:
Discharge Patient (As Directed); Ordered 05/01/24
Ordered By: Micaela Srivastava
Discharge Date and Time
Discharge Date/Time: 05/01/24 13:39
Print Language: DANISH
== END 2024-05-01 13:39 | DRG 897 ==
LOC: 3 WEST ACU 06:27
PROVIDERS: Student in an Organized Health Care Education/Training Program; ADMITTING PHYSICIAN Internal Medicine; ATTENDING PHYSICIAN Internal Medicine; CONSULT PHYSICIAN Psychiatry & Neurology Psychiatry; EMERGENCY PHYSICIAN Emergency Medicine
DX: F11.13 Opioid abuse with withdrawal (principal); N17.9 Acute kidney failure, unspecified; E87.6 Hypokalemia; D64.9 Anemia, unspecified; E83.39 Other disorders of phosphorus metabolism
CPT/HCPCS: 80053; 80143; 80179; 80306; 80307; 82010; 82077; 82248; 82728; 82977; 83540; 83550; 83735; 84100; 85025; 85027; 85610; 85730; 87070; 93005; 96361; 96374; 96376; 99285